=== PATIENT | female | born 1985 | race Caucasian/White ===

== ENCOUNTER 2019-11-27 10:05 | Day surgery (SDC) | payer BC ==
[2019-11-27] MEDS ORDERED: Lactated Ringers 1,000 ML IV SCH (10:30)
--- NOTE | 2019-11-27 10:48 | PCM.PREANE ---
Preanesthetic Assessment - Anesthesia/Transfusion/Family Hx Anesthesia History: No Prior Anesthesia Other Type of Anesthesia Reaction Comment: Previous labor epidural without problems Family History of Anesthesia Reaction: No Transfusion History: No Prior Transfusion(s) - Review of Systems General: No Symptoms Pulmonary: No Symptoms Cardiovascular: No Symptoms Gastrointestinal: No Symptoms Neurological: No Symptoms Other: Reports: None - Physical Assessment NPO Status Date: 11/26/19 Height: 5 ft 7 in Weight: 73.028 kg ASA Class: 1 Mental Status: Alert & Oriented x3 Airway Class: Mallampati = 1 Dentition: Reports: Normal Dentition ROM/Head Extension: Full Lungs: Clear to Auscultation, Normal Respiratory Effort Cardiovascular: Regular Rate, Regular Rhythm - Allergies Allergies/Adverse Reactions: Allergies Allergy/AdvReac Type Severity Reaction Status Date / Time No Known Allergies Allergy Verified 11/27/19 10:31 - Blood Blood Available: No - Anesthesia Plan Pre-Op Medication Ordered: None - Acknowledgements Anesthesia Type Planned: General Anesthesia Pt an Appropriate Candidate for the Planned Anesthesia: Yes Alternatives and Risks of Anesthesia Discussed w Pt/Guardian: Yes Pt/Guardian Understands and Agrees with Anesthesia Plan: Yes Additional Comments: PMH: none PLAN: ga/lma or mask PreAnesthesia Questionnaire - Past Health History Medical/Surgical History: Denies Medical/Surgical History HEENT History: Reports: Other (See Below) Other HEENT History: has 6 upper front dental 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 [No Known Home Meds] 11/27/19 [History] - CURRENT (IN HOUSE) MEDS Current Meds: Current Medications Lactated Ringer's (Ringers, Lactated) 1,000 mls @ 125 mls/hr IV ASDIRECTED URBANO
[2019-11-27] MEDS ORDERED: Ondansetron 4 MG/2 ML SDV ONE ×2 (11:06→11:49)
[2019-11-27] MEDS ORDERED: Glycopyrrolate 0.2 MG/ML SDV ONE ×2 (11:07→11:57)
[2019-11-27] MEDS ORDERED: Midazolam 1 MG/ML 2 ML SDV ONE ×2 (11:07→11:49)
[2019-11-27] MEDS ORDERED: fentaNYL 100 MCG/2 ML SDV ONE ×2 (11:07→11:49)
[2019-11-27] MEDS ORDERED: Propofol 200 MG/20 ML SDV ONE ×2 (11:07→11:49)
[2019-11-27] MEDS ORDERED: Lidocaine 2% 5 ML SDV ONE (11:57)
[2019-11-27] MEDS ORDERED: Ketorolac 30 MG/ML SDV ONE (12:09)
--- NOTE | 2019-11-27 12:42 | PCM.OPNOTE ---
- General Post-Op/Procedure Note Date of Surgery/Procedure: 11/27/19 Operative Procedure(s): Suction D&C Findings: Products of conception Pre Op Diagnosis: Missed Post-Op Diagnosis: same Anesthesia Technique: General LMA Primary Surgeon: Constanza Murray Fluid Replacement, Intraop: 900 EBL in mLs: 50 Complications: none known Condition: Good Free Text/Narrative:: Dictation [id number]
--- NOTE | 2019-11-27 12:52 | PCM.POSTAN ---
POST ANESTHESIA ASSESSMENT - MENTAL STATUS Mental Status: Alert - VITAL SIGNS Vital Signs: Last Vital Signs Temp 37.0 C 11/27/19 12:33 Pulse 68 11/27/19 12:47 Resp 14 11/27/19 12:47 BP 102/65 11/27/19 12:47 Pulse Ox 100 11/27/19 12:47 - RESPIRATORY Respiratory Status: Respiratory Rate WNL - CARDIOVASCULAR CV Status: Pulse Rate WNL - GASTROINTESTINAL GI Status: No Symptoms - PAIN Pain Score: 0 - POST OP HYDRATION Hydration Status: Adequate & Stable (Doing well)
--- NOTE | 2019-11-27 13:33 | PCM48HPAN ---
Post Anesthesia Note - EVALUATION WITHIN 48HRS OF ANESTHETIC Vital Signs in Normal Range: Yes Patient Participated in Evaluation: Yes Respiratory Function Stable: Yes Airway Patent: Yes Cardiovascular Function Stable: Yes Hydration Status Stable: Yes Pain Control Satisfactory: Yes Nausea and Vomiting Control Satisfactory: Yes Mental Status Recovered: Yes Vital Signs: Last Vital Signs Temp 98.6 F 11/27/19 12:33 Pulse 63 11/27/19 12:54 Resp 18 11/27/19 12:54 BP 102/63 11/27/19 12:54 Pulse Ox 100 11/27/19 12:54
[2019-11-27 14:33] VITALS: BP 119/71; PULSE 66
--- NOTE | 2019-11-27 14:59 | OR ---
SURGEON: Constanza Murray M.D. DATE OF PROCEDURE: 11/27/2019 PREOPERATIVE DIAGNOSIS: Missed . POSTOPERATIVE DIAGNOSIS: Missed . PROCEDURE: Suction D and C. ANESTHESIA: General LMA. ESTIMATED BLOOD LOSS: 50 mL. FLUIDS: 900 mL of crystalloid. COMPLICATIONS: None known. FINDINGS: Products of conception. DISPOSITION: The patient to PACU in stable condition, specimen to pathology. PROCEDURE DETAILS: Kaleigh is a 34-year-old, G7, P 2-0-4-2, who has been diagnosed with a 6-week 4-day demise. Quant hCG is falling. Ultrasound revealed no cardiac activity. Options had been discussed with her. At this time, she would like to proceed with surgical intervention in the form of suction D and C. Risks of procedure had been discussed. Proper consent obtained. The patient was taken to the operating room where she underwent general LMA, was placed in modified dorsal lithotomy position, was prepped and draped in the usual sterile fashion. Bladder was drained. Time-out was performed. Speculum was introduced in the vagina. Anterior lip of the cervix grasped with an Allis clamp. Cervix gently dilated to 8 mm using the 8 mm curved curette. This was introduced to the uterine fundus. With suction in place, the uterine cavity was cleared of clot, debris, and products of conception. Gentle sharp curettage was then performed. Specimen to pathology. The patient tolerated the procedure well overall. All instruments removed from vagina. Hemostasis evident. Sponge count and instrument count were correct. The patient will go to PACU, specimen to pathology. JAMAR / ERNST /[id number]
== END 2019-11-27 13:40 | disposition home or self-care (01) ==
LOC: MW.SDS 10:05
PROVIDERS: ATTEND Obstetrics & Gynecology
DX: O02.1 Missed abortion (principal); Z79.899 Other long term (current) drug therapy
CPT/HCPCS: 36415; 85027; 88305; J1885; J2001; J2250; J2405; J2704; J3010; J3490; J7120

== ENCOUNTER 2020-10-31 07:23 | Inpatient (IN) | payer BC ==
[2020-10-31] MEDS ORDERED: Sodium Chloride 0.9% 10 ML Syringe FLUSH PRN (09:20)
[2020-10-31] MEDS ORDERED: Nalbuphine 10 MG/1 ML Vial IVPUSH PRN (09:20)
[2020-10-31] MEDS ORDERED: Lidocaine 1% 50 ML MDV INJECT PRN (09:20)
[2020-10-31] MEDS ORDERED: Water For Irrigation,Sterile 1,000 ML Container IRR PRN (09:20)
[2020-10-31] MEDS ORDERED: Butorphanol 1 MG/ML SDV IVPUSH PRN (09:20)
[2020-10-31] MEDS ORDERED: Tranexamic Acid 1,000 MG in Sodium Chloride 0.9% 100 ML IV PRN (09:20)
[2020-10-31] MEDS ORDERED: Carboprost Tromethamine 250 MCG/1 ML Amp IM PRN (09:20)
[2020-10-31] MEDS ORDERED: Ondansetron 4 MG/2 ML SDV IVPUSH PRN (09:20)
[2020-10-31] MEDS ORDERED: Misoprostol 200 MCG Tab PO PRN (09:20)
[2020-10-31] MEDS ORDERED: Sodium Chloride 0.9% 10 ML SDV IV PRN (09:20)
[2020-10-31] MEDS ORDERED: Sodium Chloride 0.9% 2.5 ML Syringe FLUSH PRN (09:20)
[2020-10-31] MEDS ORDERED: Methylergonovine 0.2 MG/1 ML Amp IM PRN (09:20)
[2020-10-31] MEDS ORDERED: Oxytocin/0.9 % Sodium Chloride 30 UNIT/500 ML BAG IV SCH ×2 (09:30→10:15)
[2020-10-31] MEDS: Lactated Ringers 1,000 ML IV SCH ×3 (10:30→14:31)
[2020-10-31] MEDS ORDERED: fentaNYL 100 MCG/2 ML SDV ONE (13:08)
[2020-10-31] MEDS ORDERED: Ropivacaine HCl/PF 100 ML ONE (13:08)
--- NOTE | 2020-10-31 13:27 | PCM.PREANE ---
Preanesthetic Assessment - Anesthesia/Transfusion/Family Hx Anesthesia History: Prior Anesthesia Without Reaction Other Type of Anesthesia Reaction Comment: Previous labor epidural without problems Family History of Anesthesia Reaction: No Transfusion History: No Prior Transfusion(s) - Physical Assessment NPO Status Date: 10/31/20 NPO Status Time: 09:00 Height: 1.73 m Weight: 93.44 kg ASA Class: 2 - Lab Values: Laboratory Last Values WBC 10.30 K/uL (4.0-11.0) 10/31/20 09:44 RBC 3.94 M/uL (4.30-5.90) L 10/31/20 09:44 Hgb 12.5 g/dL (12.0-16.0) 10/31/20 09:44 Hct 36.8 % (36.0-46.0) 10/31/20 09:44 MCV 93.4 fL (80.0-98.0) 10/31/20 09:44 MCH 31.7 pg (27.0-32.0) 10/31/20 09:44 MCHC 34.0 g/dL (31.0-37.0) 10/31/20 09:44 RDW Std Deviation 44.6 fl (28.0-62.0) 10/31/20 09:44 RDW Coeff of Loly 13 % (11.0-15.0) 10/31/20 09:44 Plt Count 210 K/uL (150-400) 10/31/20 09:44 MPV 10.10 fL (7.40-12.00) 10/31/20 09:44 Nucleated RBC % 0.0 /100WBC 10/31/20 09:44 Nucleated RBCs # 0 K/uL 10/31/20 09:44 Membrane Rupture POSITIVE 10/31/20 07:35 SARS-CoV-2 RNA (JULIANA) NEGATIVE (NEGATIVE) 10/31/20 09:00 Blood Type A POSITIVE 10/31/20 09:44 Antibody Screen NEGATIVE 10/31/20 09:44 - Allergies Allergies/Adverse Reactions: Allergies Allergy/AdvReac Type Severity Reaction Status Date / Time No Known Allergies Allergy Verified 11/27/19 10:31 - Acknowledgements Anesthesia Type Planned: Epidural Pt an Appropriate Candidate for the Planned Anesthesia: Yes Alternatives and Risks of Anesthesia Discussed w Pt/Guardian: Yes Pt/Guardian Understands and Agrees with Anesthesia Plan: Yes PreAnesthesia Questionnaire - Past Health History Medical/Surgical History: Denies Medical/Surgical History HEENT History: Reports: Other (See Below) Other HEENT History: 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: , Spontaneous - Past Surgical History Head Surgeries/Procedures: Reports: None - HOME MEDS Home Medications: Home Meds Pnv No.95/Ferrous Fum/Folic AC [ Tablet] 1 each PO 10/31/20 [History] - CURRENT (IN HOUSE) MEDS Current Meds: Current Medications Butorphanol Tartrate (Butorphanol 1 Mg/Ml Sdv) 1 mg IVPUSH Q1H PRN PRN Reason: Pain Carboprost Tromethamine (Carboprost Tromethamine 250 Mcg/1 Ml Amp) 250 mcg IM ASDIRECTED PRN PRN Reason: Post Hemorrhage Lactated Ringer's (Ringers, Lactated) 1,000 mls @ 150 mls/hr IV ASDIRECTED URBANO Last Admin: 10/31/20 10:30 Dose: 150 mls/hr Documented by: Oxytocin/Sodium Chloride (Oxytocin 30 Unit/500 Ml-Ns) 30 unit in 500 mls @ 999 mls/hr IV TITRATE URBANO Tranexamic Acid 1,000 mg/ (Sodium Chloride) 110 mls @ 660 mls/hr IV ONETIME PRN PRN Reason: Bleeding Oxytocin/Sodium Chloride (Oxytocin 30 Unit/500 Ml-Ns) 30 unit in 500 mls @ 2 mls/hr IV TITRATE URBANO; Protocol Last Infusion: 10/31/20 12:28 Dose: 10 munits/min, 10 mls/hr Documented by: Lidocaine HCl (Lidocaine 1% 50 Ml Mdv) 50 ml INJECT ONETIME PRN PRN Reason: Laceration repair Methylergonovine Maleate (Methylergonovine 0.2 Mg/1 Ml Amp) 0.2 mg IM ASDIRECTED PRN PRN Reason: Post Hemorrhage Misoprostol (Misoprostol 200 Mcg Tab) 200 mcg PO ONETIME PRN PRN Reason: Post Hemorrhage Nalbuphine HCl (Nalbuphine 10 Mg/1 Ml Vial) 10 mg IVPUSH Q1H PRN PRN Reason: Pain (severe 7-10) Ondansetron HCl (Ondansetron 4 Mg/2 Ml Sdv) 4 mg IVPUSH Q6H PRN PRN Reason: Nausea/Vomiting Sodium Chloride (Sodium Chloride 0.9% 10 Ml Syringe) 10 ml FLUSH ASDIRECTED PRN PRN Reason: Keep Vein Open Sodium Chloride (Sodium Chloride 0.9% 2.5 Ml Syringe) 2.5 ml FLUSH ASDIRECTED PRN PRN Reason: Keep Vein Open Sodium Chloride (Sodium Chloride 0.9% 10 Ml Sdv) 10 ml IV ASDIRECTED PRN PRN Reason: IV Use Sterile Water (Water For Irrigation,Sterile 1,000 Ml Container) 1,000 ml IRR ASDIRECTED PRN PRN Reason: delivery Discontinued Medications Fentanyl (Fentanyl 100 Mcg/2 Ml Sdv) Confirm Administered Dose 100 mcg .ROUTE .STOPTIMIZERx-MED ONE Stop: 10/31/20 13:09 Ropivacaine (Naropin 0.2%) Confirm Administered Dose 100 mls @ as directed .ROUTE .STK-MED ONE Stop: 10/31/20 13:09
--- NOTE | 2020-10-31 13:30 | PCM.PRNOTE ---
- Free Text/Narrative Note: Anes Note Patient requests epidural for L&D. Sitting position, level L3-L4 midline approach. Sterile technique. Chloraprep scrub to lumbar area. Sterile fenestrated drape applied. Epidural space easily achieved single attempt with ease using YASMINE technique. YASMINE at 3 cm. Cath threaded 5 cm with ease. Cath secured at skin using sterile clear adhesive dressing. 1320 Test 3 cc 1.5% lido with epi negative 1324 Load 10 cc 0.2% ropivicaine with 1 mcg cc fentanyl in slow divided doses. 1330 Pump started wtih 90 cc same solution. Rate is 8 cc hr with 6 cc q 20 min prn bolus. Alexus well. Time with patient [id number] Tho Ocampo CRNA
[2020-10-31] MEDS ORDERED: Acetaminophen 500 MG Tab PO PRN (16:00)
[2020-10-31] MEDS ORDERED: Lanolin 100% Cream 7 GM Tube TOP PRN (16:00)
[2020-10-31] MEDS ORDERED: oxyCODONE 5 MG Tab PO PRN (16:00)
[2020-10-31] MEDS ORDERED: Bisacodyl 10 MG Supp RECTAL PRN (16:00)
[2020-10-31] MEDS ORDERED: Benzocaine/Menthol 20%-0.5% Spray 78 GM Cannister TOP PRN (16:00)
[2020-10-31] MEDS ORDERED: Witch Hazel Medicated Pads 40/Jar TOP PRN (16:00)
[2020-10-31] MEDS ORDERED: Docusate Sodium 100 MG Cap PO PRN (16:00)
--- NOTE | 2020-10-31 16:06 | PCM.DEL ---
L & D Note - General Info Date of Service: 10/31/20 Mother's Due Date: 11/14/20 - Delivery Note Labor: Augmented by Oxytocin Delivery Outcome: Livebirth Infant Delivery Method: Spontaneous Vaginal Delivery-Single Presentation: Vertex Nuchal Cord: None Anesthesia Type: Epidural Amniotic Fluid Description: Clear Episiotomy Type: None Laceration: 1st Degree Suture type: Vicryl Suture size: 2-0 Placenta: Intact (bi-lobed), Spontaneous Cord: 3 Vessels Estimated Blood Loss: 300 : Suctioned, Bulb Syringe, Stimulated, Warmed, [place] Used Score 1 min: 8 Score 5 min: 9 Delivery Comments (Free Text/Narrative):: Live female infant, weight pending - General Info Date of Service: 10/31/20 - Patient Data Weight - Most Recent: 93.44 kg Lab Results Last 24 Hours: Laboratory Results - last 24 hr 10/31/20 10/31/20 10/31/20 Range/Units 07:35 09:00 09:44 WBC 10.30 (4.0-11.0) K/uL RBC 3.94 L (4.30-5.90) M/uL Hgb 12.5 (12.0-16.0) g/dL Hct 36.8 (36.0-46.0) % MCV 93.4 (80.0-98.0) fL MCH 31.7 (27.0-32.0) pg MCHC 34.0 (31.0-37.0) g/dL RDW Std Deviation 44.6 (28.0-62.0) fl RDW Coeff of Loly 13 (11.0-15.0) % Plt Count 210 (150-400) K/uL MPV 10.10 (7.40-12.00) fL Nucleated RBC % 0.0 /100WBC Nucleated RBCs # 0 K/uL Membrane Rupture POSITIVE SARS-CoV-2 RNA (JULIANA) NEGATIVE (NEGATIVE) Blood Type Antibody Screen 10/31/20 Range/Units 09:44 WBC (4.0-11.0) K/uL RBC (4.30-5.90) M/uL Hgb (12.0-16.0) g/dL Hct (36.0-46.0) % MCV (80.0-98.0) fL MCH (27.0-32.0) pg MCHC (31.0-37.0) g/dL RDW Std Deviation (28.0-62.0) fl RDW Coeff of Loly (11.0-15.0) % Plt Count (150-400) K/uL MPV (7.40-12.00) fL Nucleated RBC % /100WBC Nucleated RBCs # K/uL Membrane Rupture SARS-CoV-2 RNA (JULIANA) (NEGATIVE) Blood Type A POSITIVE Antibody Screen NEGATIVE Med Orders - Current: Current Medications Acetaminophen (Acetaminophen 500 Mg Tab) 1,000 mg PO Q6H PRN PRN Reason: Pain Benzocaine/Menthol (Benzocaine/Menthol 20%-0.5% Avis 78 Gm Cannister) 78 gm TOP ASDIRECTED PRN PRN Reason: Perineal Comfort Measure Bisacodyl (Bisacodyl 10 Mg Supp) 10 mg RECTAL ONETIME PRN PRN Reason: Constipation Butorphanol Tartrate (Butorphanol 1 Mg/Ml Sdv) 1 mg IVPUSH Q1H PRN PRN Reason: Pain Carboprost Tromethamine (Carboprost Tromethamine 250 Mcg/1 Ml Amp) 250 mcg IM ASDIRECTED PRN PRN Reason: Post Hemorrhage Docusate Sodium (Docusate Sodium 100 Mg Cap) 100 mg PO BID PRN PRN Reason: Constipation Emollient Ointment (Lanolin 100% Cream 7 Gm Tube) 0 gm TOP ASDIRECTED PRN PRN Reason: Sore Nipples Lactated Ringer's (Ringers, Lactated) 1,000 mls @ 150 mls/hr IV ASDIRECTED URBANO Last Admin: 10/31/20 14:31 Dose: 150 mls/hr Documented by: Oxytocin/Sodium Chloride (Oxytocin 30 Unit/500 Ml-Ns) 30 unit in 500 mls @ 999 mls/hr IV TITRATE URBANO Tranexamic Acid 1,000 mg/ (Sodium Chloride) 110 mls @ 660 mls/hr IV ONETIME PRN PRN Reason: Bleeding Oxytocin/Sodium Chloride (Oxytocin 30 Unit/500 Ml-Ns) 30 unit in 500 mls @ 2 mls/hr IV TITRATE URBANO; Protocol Last Infusion: 10/31/20 14:28 Dose: 12 munits/min, 12 mls/hr Documented by: Ibuprofen (Ibuprofen 800 Mg Tab) 800 mg PO Q8H PRN PRN Reason: Pain Lidocaine HCl (Lidocaine 1% 50 Ml Mdv) 50 ml INJECT ONETIME PRN PRN Reason: Laceration repair Methylergonovine Maleate (Methylergonovine 0.2 Mg/1 Ml Amp) 0.2 mg IM ASDIRECTED PRN PRN Reason: Post Hemorrhage Misoprostol (Misoprostol 200 Mcg Tab) 200 mcg PO ONETIME PRN PRN Reason: Post Hemorrhage Nalbuphine HCl (Nalbuphine 10 Mg/1 Ml Vial) 10 mg IVPUSH Q1H PRN PRN Reason: Pain (severe 7-10) Ondansetron HCl (Ondansetron 4 Mg/2 Ml Sdv) 4 mg IVPUSH Q6H PRN PRN Reason: Nausea/Vomiting Oxycodone HCl (Oxycodone 5 Mg Tab) 5 mg PO Q2H PRN PRN Reason: Pain Sodium Chloride (Sodium Chloride 0.9% 10 Ml Syringe) 10 ml FLUSH ASDIRECTED PRN PRN Reason: Keep Vein Open Sodium Chloride (Sodium Chloride 0.9% 2.5 Ml Syringe) 2.5 ml FLUSH ASDIRECTED PRN PRN Reason: Keep Vein Open Sodium Chloride (Sodium Chloride 0.9% 10 Ml Sdv) 10 ml IV ASDIRECTED PRN PRN Reason: IV Use Sterile Water (Water For Irrigation,Sterile 1,000 Ml Container) 1,000 ml IRR ASDIRECTED PRN PRN Reason: delivery Witch Merly (Witch Merly Medicated Pads 40/Jar) 1 pad TOP ASDIRECTED PRN PRN Reason: comfort care Discontinued Medications Fentanyl (Fentanyl 100 Mcg/2 Ml Sdv) Confirm Administered Dose 100 mcg .ROUTE .STK-MED ONE Stop: 10/31/20 13:09 Last Admin: 10/31/20 14:06 Dose: Not Given Documented by: Ropivacaine (Naropin 0.2%) Confirm Administered Dose 100 mls @ as directed .ROUTE .STK-MED ONE Stop: 10/31/20 13:09 Last Admin: 10/31/20 14:06 Dose: Not Given Documented by: - Problem List & Annotations (1) Vaginal delivery SNOMED Code(s): 755652243 Code(s): O80 - ENCOUNTER FOR FULL-TERM UNCOMPLICATED DELIVERY Status: Acute Current Visit: No - Problem List Review Problem List Initiated/Reviewed/Updated: Yes - My Orders Last 24 Hours: My Active Orders 10/31/20 07:53 Non Stress Test [RC] PER UNIT ROUTINE Up ad Maranda [RC] ASDIRECTED Vaginal Exam [RC] Click to Edit Vital Signs [RC] PER UNIT ROUTINE Resuscitation Status Routine 10/31/20 08:26 Patient Status [ADT] Routine 10/31/20 09:20 Heart Tones [RC] CONTINUOUS May Shower [RC] ASDIRECTED Notify Provider [RC] PRN Butorphanol [Stadol] 1 mg IVPUSH Q1H PRN Carboprost Tromethamine [Hemabate DS] 250 mcg IM ASDIRECTED PRN Lidocaine 1% [Xylocaine 1%] 50 ml INJECT ONETIME PRN Methylergonovine [Methergine] 0.2 mg IM ASDIRECTED PRN Nalbuphine [Nubain] 10 mg IVPUSH Q1H PRN Ondansetron [Zofran] 4 mg IVPUSH Q6H PRN Sodium Chloride 0.9% [Normal Saline] 10 ml IV ASDIRECTED PRN Sodium Chloride 0.9% [Saline Flush] 10 ml FLUSH ASDIRECTED PRN Sodium Chloride 0.9% [Saline Flush] 2.5 ml FLUSH ASDIRECTED PRN Tranexamic Acid [Cyklokapron] 1,000 mg Sodium Chloride 0.9% [Normal Saline] 100 ml IV ONETIME Water For Irrigation,Sterile [Sterile Water for Irrigation] 1,000 ml IRR ASDIRECTED PRN miSOPROStoL [Cytotec] 200 mcg PO ONETIME PRN Scalp Electrode [WOMSER] Per Unit Routine Peripheral IV Insertion Adult [OM.PC] Routine 10/31/20 09:30 Lactated Ringers [Ringers, Lactated] 1,000 ml IV ASDIRECTED Oxytocin/0.9 % Sodium Chloride [Oxytocin 30 Unit/500 ML-NS] 30 unit in 500 ml IV TITRATE 10/31/20 09:44 RPR (SYPHILIS SERO) W/ RFLX [REF] Routine 10/31/20 10:15 Oxytocin/0.9 % Sodium Chloride [Oxytocin 30 Unit/500 ML-NS] 30 unit in 500 ml IV TITRATE 10/31/20 16:00 Notify Provider Vital Signs [RC] ASDIRECTED Regular Diet [DIET] Acetaminophen [Tylenol Extra Strength] 1,000 mg PO Q6H PRN Benzocaine/Menthol [Dermoplast Pain Relief 20%-0.5% Avis] 78 gm TOP ASDIRECTED PRN Docusate Sodium [Colace] 100 mg PO BID PRN Ibuprofen [Motrin] 800 mg PO Q8H PRN Lanolin [Lansinoh HPA] See Dose Instructions TOP ASDIRECTED PRN bisacodyL [Dulcolax] 10 mg RECTAL ONETIME PRN oxyCODONE 5 mg PO Q2H PRN witch Merly [Tucks] 1 pad TOP ASDIRECTED PRN Breast Pump [WOMSER] Per Unit Routine 10/31/20 16:01 Patient Status [ADT] Routine Cooling Warming Measures [RC] ASDIRECTED May Shower [RC] ASDIRECTED Up ad Maranda [RC] ASDIRECTED Vital Signs [RC] PER UNIT ROUTINE Assess Lochia [WOMSER] Per Unit Routine Assess Uterine Involution [WOMSER] Per Unit Routine Ice Therapy [OM.PC] Per Unit Routine Perineal Care [OM.PC] Per Unit Routine Peripheral IV Discontinue [OM.PC] Routine Sitz Bath [OM.PC] Per Unit Routine 11/01/20 05:11 HEMOGLOBIN/HEMATOCRIT,HH [HEME] Timed - Assessment Assessment:: 35yo s/p at 37w0d - Plan Plan:: Admit to unit for routine care. GBS negative, results returned today.
[2020-10-31] MEDS: Ibuprofen 800 MG Tab PO PRN (21:16)
--- NOTE | 2020-11-01 01:27 | OR ---
SURGEON: Luisa Savage MD DATE OF PROCEDURE: 10/31/2020 PREOPERATIVE DIAGNOSES: 1. A 35-year-old, G7, P2-0-4-2 at 37 weeks and 0 days' gestation. 2. Prelabor rupture of membranes. 3. Induction of labor. 4. GBS negative. POSTOPERATIVE DIAGNOSES: 1. A 35-year-old, G7, P2-0-4-2 at 37 weeks and 0 days' gestation. 2. Prelabor rupture of membranes. 3. Induction of labor. 4. GBS negative. PROCEDURE: Spontaneous vaginal delivery and repair of first-degree perineal laceration. PRIMARY SURGEON: Luisa Savage MD ANESTHESIA: Epidural. ESTIMATED BLOOD LOSS: 300 mL. FINDINGS: Live female in cephalic presentation. score of 8 and 9 at 1 and 5 minutes respectively. Bilobed placenta intact with 3-vessel cord. First-degree perineal laceration. INDICATIONS: This is a 35-year-old, G7, P2-0-4-2, who presented at 37 weeks and 0 days' gestation with complaints of rupture of membranes. Upon presentation, rupture of membranes was confirmed to have occurred. She was pacheco irregularly and her cervix was 1 cm dilated. She was started on Pitocin for induction of labor. She progressed to 4 to 5 cm dilated and received an epidural for pain control. She progressed to complete cervical dilation and I was called to the room. DESCRIPTION OF PROCEDURE: I arrived to the room and the cervix was completely dilated, then head at +2 station. Over the next 2 contractions, the patient pushed and delivered a live female . The head was delivered followed quickly by the shoulders and remainder of the body. The was placed on the maternal abdomen. After approximately 60 seconds, the cord was clamped and cut. Cord blood was obtained. The placenta then delivered intact with 3-vessel cord via the Mahoney- Jones maneuver. The perineum was inspected and a first-degree perineal laceration was noted. This was repaired to anatomy and hemostasis with 3-0 Vicryl. Fundus was firm below the umbilicus with minimal bleeding. The patient and infant tolerated the delivery well. [id number] / MODL /[id number]
--- NOTE | 2020-11-01 08:20 | PCM48HPAN ---
Post Anesthesia Note - EVALUATION WITHIN 48HRS OF ANESTHETIC Vital Signs in Normal Range: Yes Patient Participated in Evaluation: Yes Respiratory Function Stable: Yes Airway Patent: Yes Cardiovascular Function Stable: Yes Hydration Status Stable: Yes Pain Control Satisfactory: Yes Nausea and Vomiting Control Satisfactory: Yes Mental Status Recovered: Yes Vital Signs: Last Vital Signs Temp 36.9 C 10/31/20 20:00 Pulse 65 11/01/20 05:25 Resp 17 11/01/20 05:25 BP 117/76 11/01/20 05:25 Pulse Ox 96 11/01/20 05:25
--- NOTE | 2020-11-01 09:47 | PCM.PNPP ---
- General Info Date of Service: 11/01/20 Subjective Update: Patient doing well. Minimal cramping and lochia. going well. Functional Status: Reports: Pain Controlled, Tolerating Diet, Ambulating, Urinating - Review of Systems General: Reports: No Symptoms HEENT: Reports: No Symptoms Pulmonary: Reports: No Symptoms Cardiovascular: Reports: No Symptoms Gastrointestinal: Reports: No Symptoms Genitourinary: Reports: No Symptoms Musculoskeletal: Reports: No Symptoms Skin: Reports: No Symptoms Neurological: Reports: No Symptoms Psychiatric: Reports: No Symptoms - Patient Data Vital Signs - Most Recent: Last Vital Signs Temp 36.9 C 10/31/20 20:00 Pulse 65 11/01/20 05:25 Resp 17 11/01/20 05:25 BP 117/76 11/01/20 05:25 Pulse Ox 96 11/01/20 05:25 Weight - Most Recent: 93.44 kg I&O - Last 24 Hours: Intake & Output 10/31/20 11/01/20 11/01/20 22:59 06:59 14:59 Output Total 850 Balance -850 Lab Results - Last 24 Hours: Laboratory Results - last 24 hr 10/31/20 10/31/20 10/31/20 Range/Units 09:00 09:44 09:44 WBC 10.30 (4.0-11.0) K/uL RBC 3.94 L (4.30-5.90) M/uL Hgb 12.5 (12.0-16.0) g/dL Hct 36.8 (36.0-46.0) % MCV 93.4 (80.0-98.0) fL MCH 31.7 (27.0-32.0) pg MCHC 34.0 (31.0-37.0) g/dL RDW Std Deviation 44.6 (28.0-62.0) fl RDW Coeff of Loly 13 (11.0-15.0) % Plt Count 210 (150-400) K/uL MPV 10.10 (7.40-12.00) fL Nucleated RBC % 0.0 /100WBC Nucleated RBCs # 0 K/uL SARS-CoV-2 RNA (JULIANA) NEGATIVE (NEGATIVE) Blood Type A POSITIVE Antibody Screen NEGATIVE 11/01/20 Range/Units 05:08 WBC (4.0-11.0) K/uL RBC (4.30-5.90) M/uL Hgb 11.5 L (12.0-16.0) g/dL Hct 34.0 L (36.0-46.0) % MCV (80.0-98.0) fL MCH (27.0-32.0) pg MCHC (31.0-37.0) g/dL RDW Std Deviation (28.0-62.0) fl RDW Coeff of Loly (11.0-15.0) % Plt Count (150-400) K/uL MPV (7.40-12.00) fL Nucleated RBC % /100WBC Nucleated RBCs # K/uL SARS-CoV-2 RNA (JULIANA) (NEGATIVE) Blood Type Antibody Screen Med Orders - Current: Current Medications Acetaminophen (Acetaminophen 500 Mg Tab) 1,000 mg PO Q6H PRN PRN Reason: Pain Benzocaine/Menthol (Benzocaine/Menthol 20%-0.5% [place] 78 Gm Cannister) 78 gm TOP ASDIRECTED PRN PRN Reason: Perineal Comfort Measure Last Admin: 10/31/20 17:55 Dose: 1 can Documented by: Bisacodyl (Bisacodyl 10 Mg Supp) 10 mg RECTAL ONETIME PRN PRN Reason: Constipation Butorphanol Tartrate (Butorphanol 1 Mg/Ml Sdv) 1 mg IVPUSH Q1H PRN PRN Reason: Pain Carboprost Tromethamine (Carboprost Tromethamine 250 Mcg/1 Ml Amp) 250 mcg IM ASDIRECTED PRN PRN Reason: Post Hemorrhage Docusate Sodium (Docusate Sodium 100 Mg Cap) 100 mg PO BID PRN PRN Reason: Constipation Emollient Ointment (Lanolin 100% Cream 7 Gm Tube) 0 gm TOP ASDIRECTED PRN PRN Reason: Sore Nipples Lactated Ringer's (Ringers, Lactated) 1,000 mls @ 150 mls/hr IV ASDIRECTED URBANO Last Admin: 10/31/20 14:31 Dose: 150 mls/hr Documented by: Oxytocin/Sodium Chloride (Oxytocin 30 Unit/500 Ml-Ns) 30 unit in 500 mls @ 999 mls/hr IV TITRATE URBANO Tranexamic Acid 1,000 mg/ (Sodium Chloride) 110 mls @ 660 mls/hr IV ONETIME PRN PRN Reason: Bleeding Oxytocin/Sodium Chloride (Oxytocin 30 Unit/500 Ml-Ns) 30 unit in 500 mls @ 2 mls/hr IV TITRATE URBANO; Protocol Last Infusion: 10/31/20 15:46 Dose: 999 munits/min, 999 mls/hr Documented by: Ibuprofen (Ibuprofen 800 Mg Tab) 800 mg PO Q8H PRN PRN Reason: Pain Last Admin: 10/31/20 21:16 Dose: 800 mg Documented by: Lidocaine HCl (Lidocaine 1% 50 Ml Mdv) 50 ml INJECT ONETIME PRN PRN Reason: Laceration repair Methylergonovine Maleate (Methylergonovine 0.2 Mg/1 Ml Amp) 0.2 mg IM ASDIRECTED PRN PRN Reason: Post Hemorrhage Misoprostol (Misoprostol 200 Mcg Tab) 200 mcg PO ONETIME PRN PRN Reason: Post Hemorrhage Nalbuphine HCl (Nalbuphine 10 Mg/1 Ml Vial) 10 mg IVPUSH Q1H PRN PRN Reason: Pain (severe 7-10) Ondansetron HCl (Ondansetron 4 Mg/2 Ml Sdv) 4 mg IVPUSH Q6H PRN PRN Reason: Nausea/Vomiting Oxycodone HCl (Oxycodone 5 Mg Tab) 5 mg PO Q2H PRN PRN Reason: Pain Sodium Chloride (Sodium Chloride 0.9% 10 Ml Syringe) 10 ml FLUSH ASDIRECTED PRN PRN Reason: Keep Vein Open Sodium Chloride (Sodium Chloride 0.9% 2.5 Ml Syringe) 2.5 ml FLUSH ASDIRECTED PRN PRN Reason: Keep Vein Open Sodium Chloride (Sodium Chloride 0.9% 10 Ml Sdv) 10 ml IV ASDIRECTED PRN PRN Reason: IV Use Sterile Water (Water For Irrigation,Sterile 1,000 Ml Container) 1,000 ml IRR ASDIRECTED PRN PRN Reason: delivery Witch Merly (Witch Merly Medicated Pads 40/Jar) 1 pad TOP ASDIRECTED PRN PRN Reason: comfort care Last Admin: 10/31/20 17:55 Dose: 1 tub Documented by: Discontinued Medications Fentanyl (Fentanyl 100 Mcg/2 Ml Sdv) Confirm Administered Dose 100 mcg .ROUTE .STK-MED ONE Stop: 10/31/20 13:09 Last Admin: 10/31/20 14:06 Dose: Not Given Documented by: Ropivacaine (Naropin 0.2%) Confirm Administered Dose 100 mls @ as directed .ROUTE .K-MED ONE Stop: 10/31/20 13:09 Last Admin: 10/31/20 14:06 Dose: Not Given Documented by: - Infant Interaction Infant Disposition, : [place] in Room with Family Infant Interaction: Holding Infant Feeding: Breastfed ; Nursed Well Support Person: - Recovery Exam Fundal Tone: Firm Fundal Level: 2 Fingerbreadths Below Umbilicus Fundal Placement: Midline Lochia Amount: Scant Lochia Color: Rubra/Red Other Perinuem Description: 1st degree laceration Bladder Status: Voiding Urinary Elimination: Voided - Exam General: Alert, Oriented Neck: Supple Lungs: Normal Respiratory Effort GI/Abdominal Exam: Soft, Non-Tender, No Distention Extremities: No Pedal Edema Skin: Warm, Dry, Intact Neurological: No New Focal Deficit Psy/Mental Status: Alert, Normal Affect, Normal Mood - Problem List & Annotations (1) Vaginal delivery SNOMED Code(s): 938083991 Code(s): O80 - ENCOUNTER FOR FULL-TERM UNCOMPLICATED DELIVERY Status: Acute Current Visit: No - Problem List Review Problem List Initiated/Reviewed/Updated: Yes - My Orders Last 24 Hours: My Active Orders 10/31/20 09:20 Butorphanol [Stadol] 1 mg IVPUSH Q1H PRN Carboprost Tromethamine [Hemabate DS] 250 mcg IM ASDIRECTED PRN Lidocaine 1% [Xylocaine 1%] 50 ml INJECT ONETIME PRN Methylergonovine [Methergine] 0.2 mg IM ASDIRECTED PRN Nalbuphine [Nubain] 10 mg IVPUSH Q1H PRN Ondansetron [Zofran] 4 mg IVPUSH Q6H PRN Sodium Chloride 0.9% [Normal Saline] 10 ml IV ASDIRECTED PRN Sodium Chloride 0.9% [Saline Flush] 10 ml FLUSH ASDIRECTED PRN Sodium Chloride 0.9% [Saline Flush] 2.5 ml FLUSH ASDIRECTED PRN Tranexamic Acid [Cyklokapron] 1,000 mg Sodium Chloride 0.9% [Normal Saline] 100 ml IV ONETIME Water For Irrigation,Sterile [Sterile Water for Irrigation] 1,000 ml IRR ASDIRECTED PRN miSOPROStoL [Cytotec] 200 mcg PO ONETIME PRN Scalp Electrode [WOMSER] Per Unit Routine Peripheral IV Insertion Adult [OM.PC] Routine 10/31/20 09:30 Lactated Ringers [Ringers, Lactated] 1,000 ml IV ASDIRECTED Oxytocin/0.9 % Sodium Chloride [Oxytocin 30 Unit/500 ML-NS] 30 unit in 500 ml IV TITRATE 10/31/20 09:44 RPR (SYPHILIS SERO) W/ RFLX [REF] Routine 10/31/20 10:15 Oxytocin/0.9 % Sodium Chloride [Oxytocin 30 Unit/500 ML-NS] 30 unit in 500 ml IV TITRATE 10/31/20 16:00 Notify Provider Vital Signs [RC] ASDIRECTED Regular Diet [DIET] Acetaminophen [Tylenol Extra Strength] 1,000 mg PO Q6H PRN Benzocaine/Menthol [Dermoplast Pain Relief 20%-0.5% [place]] 78 gm TOP ASDIRECTED PRN Docusate Sodium [Colace] 100 mg PO BID PRN Ibuprofen [Motrin] 800 mg PO Q8H PRN Lanolin [Lansinoh HPA] See Dose Instructions TOP ASDIRECTED PRN bisacodyL [Dulcolax] 10 mg RECTAL ONETIME PRN oxyCODONE 5 mg PO Q2H PRN witch Merly [Tucks] 1 pad TOP ASDIRECTED PRN Breast Pump [WOMSER] Per Unit Routine 10/31/20 16:01 Patient Status [ADT] Routine May Shower [RC] ASDIRECTED Up ad Maranda [RC] ASDIRECTED Vital Signs [RC] PER UNIT ROUTINE Assess Lochia [WOMSER] Per Unit Routine Assess Uterine Involution [WOMSER] Per Unit Routine Ice Therapy [OM.PC] Per Unit Routine Perineal Care [OM.PC] Per Unit Routine Peripheral IV Discontinue [OM.PC] Routine Sitz Bath [OM.PC] Per Unit Routine 11/01/20 09:45 Ready for Discharge [RC] PER UNIT ROUTINE - Assessment Assessment:: 35yo s/p at 37w0d, PPD#1 - Plan Plan:: Plan to discharge home at 24-hours if cleared by [employer]. Continue to encourage . Reviewed discharge instructions/precautions. All questions answered. Follow-up in 4 weeks for visit.
[2020-11-01] MEDS: Ibuprofen 800 MG Tab PO PRN (10:10)
[2020-11-01 11:06] VITALS: BP 122/76; PULSE 74
== END 2020-11-01 17:20 | disposition home or self-care (01) | DRG 560 ==
LOC: MW.OBCHECK 07:23 → MW.OB 07:26 → MW.OBCHECK 08:25 → MW.OB 08:26 → OBSVTOIN 16:01 → MW.OB 18:30
PROVIDERS: ADMIT Obstetrics & Gynecology; ATTEND Obstetrics & Gynecology
PROC: 10E0XZZ Delivery of Products of Conception, External Approach (ICD-10-PCS; principal; 2020-10-31)
PROC: 10907ZC Drainage of Amniotic Fluid, Therapeutic from Products of Conception, Via Natural or Artificial Opening (ICD-10-PCS; 2020-10-31)
PROC: 0HQ9XZZ Repair Perineum Skin, External Approach (ICD-10-PCS; 2020-10-31)
PROC: 3E033VJ Introduction of Other Hormone into Peripheral Vein, Percutaneous Approach (ICD-10-PCS; 2020-10-31)
PROC: 4A1HXCZ Monitoring of Products of Conception, Cardiac Rate, External Approach (ICD-10-PCS; 2020-10-31)
PROC: 3E0R3BZ Introduction of Anesthetic Agent into Spinal Canal, Percutaneous Approach (ICD-10-PCS; 2020-10-31)
PROC: 00HU33Z Insertion of Infusion Device into Spinal Canal, Percutaneous Approach (ICD-10-PCS; 2020-10-31)
DX: O76 Abnormality in fetal heart rate and rhythm complicating labor and delivery (principal); Z3A.37 37 weeks gestation of pregnancy; O70.0 First degree perineal laceration during delivery; Z37.0 Single live birth; Z20.822 Contact with and (suspected) exposure to COVID-19
CPT/HCPCS: 36415; 51702; 59025; 59409; 84112; 85014; 85018; 85027; 86592; 86850; 86900; 86901; A9270-GY; J2590; J2795; J3010; J7120; U0002